=== PATIENT | female | born 1960 | race Caucasian/White ===

== ENCOUNTER 2020-11-13 10:44 | Outpatient (CLI) | payer OTHER ==
--- NOTE | 2020-11-13 11:35 | BD ---
EXAM: Bone densitometry using DEXA HISTORY: 60 yo female. Screening for postmenopausal osteoporosis FINDINGS: L1--bone mineral density 0.585 g/sq cm; T score -3.7 ; Z score -2.6 L2--bone mineral density 0.640 g/sq cm; T score -3.5 ; Z score -2.3 L3--bone mineral density 0.692 g/sq cm; T score -3.6 ; Z score -2.2 L4--bone mineral density 0.768 g/sq cm; T score -2.7 ; Z score -1.3 Total L1-L4--bone mineral density 0.677 g/sq cm; T score -2.4 ; Z score -2.1 Left femoral neck--bone mineral density0.670; T score -1.6 ; Z score -0.4 Total proximal left femur--bone mineral density 0.843; T score -0.8 ; Z score 0.0 IMPRESSION: Osteoporosis
--- NOTE | 2020-11-13 12:51 | MMO ---
Bilateral MAMMO Bilat Screen [facility]. CLINICAL HISTORY: Patient is 60 years old and is seen for screening. The patient has no family history of breast cancer. The patient has no personal history of cancer. VIEWS: The views performed were: bilateral craniocaudal with tomosynthesis and bilateral mediolateral oblique with tomosynthesis. FILMS COMPARED: The present examination has been compared to prior imaging studies performed at [facility] on 09/30/2010, 11/30/2011, 06/26/2014 and 07/10/2015. This study has been interpreted with the assistance of computer-aided detection. MAMMOGRAM FINDINGS: The breasts are extremely dense, which may lower the sensitivity of mammography. There are no suspicious masses, suspicious calcifications, or new areas of architectural distortion. IMPRESSION: THERE IS NO MAMMOGRAPHIC EVIDENCE OF MALIGNANCY. A ROUTINE FOLLOW-UP MAMMOGRAM IN 1 YEAR IS RECOMMENDED. THE RESULTS OF THIS EXAM WERE SENT TO THE PATIENT. ACR BI-RADS Category 1 - Negative MAMMOGRAPHY NOTE: 1. A negative mammogram report should not delay a biopsy if a dominant of clinically suspicious mass is present. 2. Approximately 10% to 15% of breast cancers are not detected by mammography. 3. Adenosis and dense breasts may obscure an underlying neoplasm. Reported by: ARIANNA STEVENSON MD Electonically Signed: [id number]
== END 2020-11-13 10:45 | disposition home or self-care (01) ==
LOC: BICMAMMO 10:44
PROVIDERS: ATTEND Obstetrics & Gynecology
DX: Z12.31 Encounter for screening mammogram for malignant neoplasm of breast (principal); Z13.820 Encounter for screening for osteoporosis; M81.0 Age-related osteoporosis without current pathological fracture; M85.80 Other specified disorders of bone density and structure, unspecified site; Z79.890 Hormone replacement therapy
CPT/HCPCS: 77063; 77067; 77080